=== PATIENT | male | born 1955 | race Caucasian/White ===

== ENCOUNTER 2017-06-04 08:24 | Emergency (ER) | payer SELFPAY ==
[2017-06-04 09:48] LABS: AMORPHOUS SEDIMENT,URINE TRACE /HPF; APPEARANCE,URINE TURBID; BILIRUBIN,URINE NEGATIVE (NEGATIVE); GLUCOSE, URINE NEGATIVE (NEGATIVE); KETONES,URINE NEGATIVE (NEGATIVE); LEUKOCYTE ESTERASE,URINE NEGATIVE (NEGATIVE); NITRITE,URINE NEGATIVE (NEGATIVE); PROTEIN,URINE NEGATIVE (NEGATIVE); URINE SPECIFIC GRAVITY 1.033
[2017-06-04] MEDS ORDERED: MORPHINE SULFATE 10 MG/ML INJ IM ONE (09:51)
[2017-06-04] MEDS ORDERED: ONDANSETRON 4 MG TAB.RAPDIS PO ONE ×2 (09:53→09:56)
--- NOTE | 2017-06-04 10:07 | ER Document Report ---
ED General - General Chief Complaint: Back Pain Stated Complaint: RIGHT SIDE BACK PAIN Time Seen by Provider: 06/04/17 09:37 Mode of Arrival: Ambulatory Information source: Patient Notes: 62-year-old male presents with 3 day duration of right flank pain with nausea vomiting. Patient denies a history of kidney stones denies any fevers or chills. Patient denies a history of such pain TRAVEL OUTSIDE OF THE [place] IN LAST 30 DAYS: No - HPI Onset: Other Onset/Duration: Intermittent Quality of pain: Sharp Severity: Mild Pain Level: 1 Associated symptoms: Other Exacerbated by: Denies Relieved by: Denies Similar symptoms previously: No Recently seen / treated by doctor: No - Related Data Allergies/Adverse Reactions: No Known Allergies Allergy (Verified 06/04/17 09:40) Past Medical History - Social History Smoking Status: Current Some Day Smoker Cigarette use (# per day): Yes Chew tobacco use (# tins/day): No Smoking Education Provided: No Frequency of alcohol use: None Drug Abuse: None Family History: Reviewed & Not Pertinent Patient has suicidal ideation: No Renal/ Medical History: Denies: Hx Peritoneal Dialysis Review of Systems - Review of Systems Notes: REVIEW OF SYSTEMS: CONSTITUTIONAL : Denies fever, chills, or sweats. Denies recent illness. EENT: Denies eye, ear, throat, or mouth pain or symptoms. Denies nasal or sinus congestion or discharge. Denies throat, tongue, or mouth swelling or difficulty swallowing. CARDIOVASCULAR: Denies chest pain. Denies palpitations or racing or irregular heart beat. Denies ankle edema. RESPIRATORY: Denies cough, cold, or chest congestion. Denies shortness of breath, difficulty breathing, or wheezing. GASTROINTESTINAL: Right flank pain nausea GENITOURINARY: Denies difficulty urinating, painful urination, burning, frequency, blood in urine, or discharge. MUSCULOSKELETAL: Denies back or neck pain or stiffness. Denies joint pain or swelling. SKIN: Denies rash, lesions or sores. HEMATOLOGIC : Denies easy bruising or bleeding. LYMPHATIC: Denies swollen, enlarged glands. NEUROLOGICAL: Denies confusion or altered mental status. Denies passing out or loss of consciousness. Denies dizziness or lightheadedness. Denies headache. Denies weakness or paralysis or loss of use of either side. Denies problems with gait or speech. Denies sensory loss, numbness, or tingling. Denies seizures. PSYCHIATRIC: Denies anxiety or stress. Denies depression, suicidal ideation, or homicidal ideation. ALL OTHER SYSTEMS REVIEWED AND NEGATIVE. Dictation was performed using [employer] voice recognition software PHYSICAL EXAMINATION: GENERAL: Well-appearing, well-nourished and in no acute distress. HEAD: Atraumatic, normocephalic. EYES: Pupils equal round and reactive to light, extraocular movements intact, sclera anicteric, conjunctiva are normal. ENT: Nares patent, oropharynx clear without exudates. Moist mucous membranes. NECK: Normal range of motion, supple without lymphadenopathy LUNGS: Breath sounds clear to auscultation bilaterally and equal. No wheezes rales or rhonchi. HEART: Regular rate and rhythm with murmurs ABDOMEN: Soft, hernia noted mild tenderness right lower quadrant Musculoskeletal: Normal range of motion, no pitting or edema. No cyanosis. NEUROLOGICAL: Cranial nerves grossly intact. Normal speech, normal gait. Normal sensory, motor exams PSYCH: Normal mood, normal affect. SKIN: Warm, Dry, normal turgor, no rashes or lesions noted. Physical Exam - Vital signs Vitals: Temp Pulse Resp BP Pulse Ox 97.7 F 56 L 18 170/80 H 99 06/04/17 08:35 06/04/17 08:35 06/04/17 08:35 06/04/17 08:35 06/04/17 08:35 Course - Re-evaluation Re-evalutation: 06/04/17 11:15 Physical examination consistent with inguinal hernia, tenderness of the abdomen as well as a murmur. Patient will be sent for CT, which notes 3 mm stone with mild hydroureter hydro-nephrosis. Otherwise patient looks well is in no distress. He will be given follow-up with surgery urology and cardiology After performing a Medical Screening Examination, I estimate there is LOW risk for ACUTE APPENDICITIS, BOWEL OBSTRUCTION, ACUTE CHOLECYSTITIS, PERFORATED DIVERTICULITIS, INCARCERATED HERNIA, PANCREATITIS, or PERFORATED ULCER, thus I consider the discharge disposition reasonable. Also, there is no evidence or peritonitis, sepsis, or toxicity. I have reevaluated this patient multiple times and no significant life threatening changes are noted. The patient and I have discussed the diagnosis and risks, and we agree with discharging home with close follow-up with the understanding that symptoms and presentations can change. We also discussed returning to the Emergency Department immediately if new or worsening symptoms occur. We have discussed the symptoms which are most concerning (e.g., bloody stool, fever, changing or worsening pain, intractable vomiting - standard verbal up date) that necessitate immediate return. - Vital Signs Vital signs: Temp Pulse Resp BP Pulse Ox 97.7 F 50 L 16 149/67 H 96 06/04/17 08:35 06/04/17 10:16 06/04/17 10:16 06/04/17 10:16 06/04/17 10:16 - Laboratory Laboratory results interpreted by me: 06/04/17 08:45 Urine Blood MODERATE H Urine Urobilinogen 2.0 H - Diagnostic Test Radiology reviewed: Image reviewed, Reports reviewed Discharge - Discharge Clinical Impression: Murmur, heart, Kidney stone on right side Inguinal hernia Qualifiers: Obstruction and gangrene presence: without obstruction or gangrene Laterality: unilateral Recurrence: recurrent Qualified Code(s): K40.91 - Unilateral inguinal hernia, without obstruction or gangrene, recurrent Condition: Stable Disposition: HOME, SELF-CARE Instructions: Kidney Stone ([facility]) Prescriptions: Metoclopramide HCl [Reglan 10 mg Tablet] 1 - 2 tab PO Q6 #25 tablet Oxycodone HCl/Acetaminophen [Percocet 5-325 mg Tablet] 1 - 2 tab PO Q4H PRN #15 tablet PRN Reason: Tamsulosin HCl [Flomax 0.4 mg Cap.sr] 0.4 mg PO DAILY #7 cap.sr.24h Referrals: EDITH FRANKLIN MD [ACTIVE STAFF] - Follow up tomorrow CINDY MALONE MD [ACTIVE STAFF] - Follow up tomorrow RIVER MCCAULEY MD [ACTIVE STAFF] - Follow up tomorrow
--- NOTE | 2017-06-04 10:27 | RADIOLOGY REPORT (SQ) ---
EXAM DESCRIPTION: [facility] RENAL STONE PROTOCOL ON COMPLETED DATE/TIME: 06/04/2017 10:03 am REASON FOR STUDY: hematuria, flank pain COMPARISON: None. TECHNIQUE: CT scan of the abdomen and pelvis performed without intravenous or oral contrast. Images reviewed with lung, soft tissue, and bone windows. Reconstructed coronal and sagittal MPR images revi ewed. All images stored on PACS. All CT scanners at this facility use dose modulation, iterative reconstruction, and/or weight based d osing when appropriate to reduce radiation dose to as low as reasonably achievable (ALARA). [facility]: Dose Right [facility]: CareDose [facility]: Dose Right [facility]: Teradose 4D [facility]: Smart MRO RADIATION DOSE: Up-to-date CT equipment and radiation dose reduction techniques were employed. CTDIv ol: 12.1 mGy. DLP: 679 mGy-cm.mGy. LIMITATIONS: None. FINDINGS: On the right side, a 3 mm distal right ureteral stone is present on axial image 77 and cor onal image 52. This causes mild right hydronephrosis and hydroureter with perinephric stranding. El sewhere in the right kidney, intrarenal nonobstructive 3 to 4 mm midpole calculus is present. No rig ht-sided renal cysts or masses. LOWER CHEST: No significant findings. No nodules or infiltrates. NON-CONTRASTED LIVER, SPLEEN, ADRENALS: Evaluation limited by lack of IV contrast. No identified sign ificant masses. Nodular liver contour with recanalized umbilical vein at the falciform ligament from hypertension. No splenomegaly. PANCREAS: No masses. No peripancreatic inflammatory changes. GALLBLADDER: No identified stones by CT criteria. No inflammatory changes to suggest cholecystitis. RIGHT KIDNEY AND URETER: As above LEFT KIDNEY AND URETER: No suspicious masses. Assessment limited by lack of IV contrast. No signifi cant calcifications. No hydronephrosis or hydroureter. AORTA AND RETROPERITONEUM: No aneurysm. No retroperitoneal masses or adenopathy. BOWEL AND PERITONEAL CAVITY: No obvious masses or inflammatory changes. No free fluid. Large left in guinal hernia containing distal descending/proximal sigmoid colon. APPENDIX: Normal. PELVIS, BLADDER, AND ABDOMINAL WALL:No abnormal masses. No free fluid. Bladder normal. Large left in guinal hernia containing nonobstructed distal descending/proximal sigmoid colon, best shown on axial images 74-100 and coronal images 24-31. BONES: No significant findings. OTHER: No other significant finding. IMPRESSION: 3 mm distal right ureteral stone with mild right hydronephrosis and hydroureter. Large left inguinal hernia containing distal descending/ proximal sigmoid colon which is nonobstructe d. COMMENT: Quality ID # [id number]: Final reports with documentation of one or more dose reduction techniques (e.g., Automated exposure control, adjustment of the mA and/or kV according to patient size, use of iterative reconstruction technique) TECHNICAL DOCUMENTATION: JOB ID: [id number] [employer]- All Rights Reserved
[2017-06-04 11:50] VITALS: BP 144/66
== END 2017-06-04 11:20 | disposition home or self-care (01) ==
LOC: ER 08:24
DX: R01.1 Cardiac murmur, unspecified (principal); N20.0 Calculus of kidney; K40.91 Unilateral inguinal hernia, without obstruction or gangrene, recurrent; M54.9 Dorsalgia, unspecified; R11.2 Nausea with vomiting, unspecified; F17.210 Nicotine dependence, cigarettes, uncomplicated
CPT/HCPCS: 99283; 96372; 81001; 76380; S0119; J2270

== ENCOUNTER 2020-04-07 09:29 | Day surgery (SDC) | payer MEDICARE, BC ==
[~2020-04-07 09:29] MED LIST: CHONDR SU A NA/HYALUR INTRAOC KIT (SURGICARE) ONE; KETOROLAC TROMETHAMINE 0.45% 4 DROP/0.4 ML DROPERETTE OS PRN; LIDOCAINE 1% INJ-PF (10 MG/ML) 30 ML SDV ONE; PHENYLEPHRINE/KETOROLAC 1%-0.3% 4 ML VIAL ONE; TRYPAN BLUE 0.06 % OPH SOLN 0.5 ML DISP.SYRIN ONE
[2020-04-07] MEDS ORDERED: MIDAZOLAM 2 MG/2 ML INJ ONE (09:49)
[2020-04-07] MEDS: TROPICAMIDE 1% OPH SOLN 15 ML OS PRN ×3 (10:18→10:38)
[2020-04-07] MEDS: CYCLOPENTOLATE 0.2%/PHENYLEPHRINE 1% OPH SOLN 2 ML OS PRN ×4 (10:18→10:38)
[2020-04-07] MEDS: BESIFLOXACIN HCL 0.6% OPH SUSP 5 ML BOTTLE OS PRN ×4 (10:18→11:23)
[2020-04-07] MEDS: TETRACAINE HCL 0.5% OPH SOLN 4 ML OS PRN ×3 (10:19→10:52)
[2020-04-07] MEDS ORDERED: CHONDR SU A NA/HYALUR SOD 0.5 ML DISP.SYRIN ONE (11:16)
[2020-04-07] MEDS: DORZOLAMIDE HCL 2%/TIMOLOL MALEAT 0.5% OPH SOLN 10 ML OS PRN ×2 (11:23)
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
== END 2020-04-07 11:53 | disposition home or self-care (01) ==
LOC: SC 09:29
PROVIDERS: ATTEND Internal Medicine
DX: H25.89 Other age-related cataract (principal); H57.03 Miosis; K21.9 Gastro-esophageal reflux disease without esophagitis; Z79.899 Other long term (current) drug therapy; F17.210 Nicotine dependence, cigarettes, uncomplicated; H25.11 Age-related nuclear cataract, right eye; H33.012 Retinal detachment with single break, left eye; H43.812 Vitreous degeneration, left eye; H04.123 Dry eye syndrome of bilateral lacrimal glands
CPT/HCPCS: 66982; V2632; J2250; J3490 ×4; A9270; J1097